=== PATIENT | male | born 1970 | race Caucasian/White ===

== ENCOUNTER 2021-07-29 21:50 | Emergency (ER) | payer BC ==
[~2021-07-29] VITALS: Ht 162.6 cm; Wt 74.8 kg
[2021-07-29] MEDS ORDERED: OMEPRAZOLE40 MG (22:20)
[2021-07-30] MEDS ORDERED: PEPCID AC20 MG PO (01:07)
[2021-07-30] MEDS ORDERED: CARAFATE1 GM PO (01:07)
[2021-07-30] MEDS ORDERED: PHENERGAN25 MG PO (01:07)
== END 2021-07-30 01:26 | disposition home or self-care (01) ==
LOC: ER 21:50
DX: K29.70 Gastritis, unspecified, without bleeding (principal); Z91.013 Allergy to seafood; Z91.041 Radiographic dye allergy status

== ENCOUNTER 2021-07-30 17:02 | Inpatient (IN) | payer BC ==
[~2021-07-30] VITALS: Ht 167.6 cm; Wt 74.8 kg
[~2021-07-30 17:02] MED LIST: CARAFATE1 GM PO; OMEPRAZOLE40 MG; PEPCID AC20 MG PO; PHENERGAN25 MG PO
== END 2021-08-03 09:55 | disposition home or self-care (01) | DRG 445 ==
LOC: ER 17:02 → SURH 07-31 10:24
PROVIDERS: ADMIT Internal Medicine; ATTEND Internal Medicine
PROC: BF37ZZZ Magnetic Resonance Imaging (MRI) of Pancreas (ICD-10-PCS; principal; 2021-07-30)
PROC: BW40ZZZ Ultrasonography of Abdomen (ICD-10-PCS; 2021-07-30)
PROC: 3E0336Z Introduction of Nutritional Substance into Peripheral Vein, Percutaneous Approach (ICD-10-PCS; 2021-08-01)
DX: K80.18 Calculus of gallbladder with other cholecystitis without obstruction (principal); R17 Unspecified jaundice; E66.3 Overweight; Z68.26 Body mass index [BMI] 26.0-26.9, adult; Z20.822 Contact with and (suspected) exposure to COVID-19